=== PATIENT | male | born 1960 | race Caucasian/White ===

== ENCOUNTER → 2016-08-24 | Outpatient (CLI) | payer BC ==
--- NOTE | 2016-08-24 16:43 | US ---
Testicular Sonography with Color and Spectral Doppler Clinical History: 56-year-old male with right scrotal enlargement for one month. Rule out malignanc y. ICD-10 Diagnostic Code: N50.89. Technique: A linear 12-MHz transducer was used to sonographically evaluate each hemiscrotum. Color and spectral Doppler are used. Comparison Study: None. Findings: Right Hemiscrotum: The testis is normal in size and homogeneous in echotexture, measuring 5.4 x 3.6 x 3.2 cm. Intratesticular vascular flow is documented, with both arterial and venous flow seen and a resistive index of 0.49. There is a large predominantly anechoic 4.6 x 3.4 x 3.5 cm cystic structur e (with some minimal mobile debris), which abuts the testis and appears contiguous with the epididyma l head. This likely represents an epididymal head cyst versus a spermatocele. The possibility of a loculated hydrocele is mentioned, though considered secondarily. There is no free-flowing fluid in t he lower scrotal sac caudal to the testis. There is no varicocele. Left Hemiscrotum: The testis is normal in size, shape, and position, and is homogeneous in echotextu re, measuring 5.0 x 3.6 x 2.7 cm. Intratesticular arterial and venous flow is documented, with a res istive index of 0.52. There is a physiologic amount of fluid in the sac. The epididymis is normal. Near the epididymal head, there is a 4 x 4 x 3 mm echogenic calcification with some acoustic shadowi ng. There are some serpentine-shaped vessels seen peripheral laterally in the left hemiscrotum, binh uring 2.3-2.8 mm. These do not meet size threshold criteria for a true varicocele. Impression: 1. Normal sonographic appearance of each testis. 2. The area of palpable concern in the right scrotal sac corresponds to a 4.6 x 3.4 x 3.5 cm epididy mal head cyst versus spermatocele (a loculated hydrocele is considered less likely). Results were called to the voicemail of Dr. Juan Carlos Ramirez, as requested. A test result has been communicated to a licensed care provider and documented in the [facility] system on 08/24/2016 16:22, Message ID [id number]. E:[email or web address]
== END ==
LOC: FIMAGING 15:23
PROVIDERS: ATTEND Internal Medicine
DX: N50.89 Other specified disorders of the male genital organs (principal)